=== PATIENT | female | born 1995 | race Caucasian/White ===

== ENCOUNTER 2022-06-24 00:58 | Day surgery (SDC) | payer OTHER, SELFPAY ==
[2022-06-20 14:16] VITALS: BMI 30.2
--- NOTE | 2022-06-20 14:23 | PC.NURSE ---
Report to the Outpatient Waiting Room, entrance under the green pavilion located off [facility], at time 0600 on date 06/24/22. Planned Procedure Time: 0730. Time changes happen often and if your time is changed the preop area will call you the afternoon before. - You and your visitor will be asked to self-screen and do not enter if you have any COVID symptoms. - Only one visitor is requested with a max of two and NO children visitors are allowed at this time. - The patient visitor may be requested to leave or wait in car when not with patient due to distancing restrictions. - A mask is optional within the hospital at this time. Patients may have clear liquids (water, carbonated beverages, clear teas, apple juice) until 3 hours prior to surgery with a maximum of 20 ounces. - No food from midnight until time of surgery Take the following medications with a SIP of water the morning of surgery: ZOLOFT DO NOT STOP ANY OF YOUR OTHER PRESCRIPTION MEDICATIONS PRIOR TO SURGERY EXCEPT THE FOLLOWING Medications to discontinue per physician: VITAMINS Date to take last dose: PT HAS ALREADY STOPPED TAKING Please no make-up, nail maltese, hairspray, perfume, deodorant, or body powder the day of surgery. No jewelry (including any body piercings) or valuables the day of surgery, leave them at home. Please take a shower or bath the night before, or the morning of, surgery with an antibacterial soap. Wear comfortable, loose fitting clothing. - Jewelry must be removed prior to entering the operating room. Rings and piercings that are not removed may be cut off. - The hospital will not accept responsibility for valuables. - Please leave all valuables, including medications, at home the day of surgery. If you are going home after surgery, a licensed commercial trailer truck driver must drive you home. - NO public transportation without another adult if you receive anesthesia. - We recommend that an adult stay with you for 24 hours following discharge. - We also recommend that you do not drive, make important decision, drink alcoholic beverages, or take any drugs that were not prescribed by your health care provider for at least 24 hours after your discharge time. Follow any additional instructions given to you from your surgeon. If you or anyone in your household have experienced Covid symptoms in the past week, please notify your surgeon or the nurse liaison at the phone number below for possible testing. Telephone instructions given to SWETHA HERNANDEZ and asked if any additional questions and then verbalized understanding. Patient advised to call surgeon office or pre surgery nurse liaison [phone] if any additional questions.
--- NOTE | 2022-06-23 15:18 | P.PNAN_ITS ---
Anes - Initial Pre Proc Eval Procedure: Operation Date: 06/24/22 07:30 Proposed Procedures p Bilateral Breast Reduction - Vikas yLman MD Date/Time: 06/23/22 15:18 Surgeon: Vikas Lyman MD Pre Op Diagnosis: macromastia Patient Data Age: 27 Gender: F Height: 1.55 m Weight: 72.6 kg Allergies Allergy/AdvReac Type Severity Reaction Status Date / Time No Known Allergies Allergy Verified 06/24/22 06:34 Home Medications Medication Instructions Recorded Confirmed Type multivitamin 1 tablet PO DAILY 06/20/22 06/24/22 History sertraline 50 mg tablet 50 mg PO DAILY 06/20/22 06/24/22 History Patient hx anesthesia problems: none Family hx anesthesia problems: none Results Review: All pre-operative results and documents have been reviewed as part of the pre-operative evaluation. [facility] Past Medical History Medical History (Updated 06/23/22 @ 15:18 by Wilian Hernandez MD) Anxiety Depression Social History Social History Smoking status: Never smoker Alcohol intake: never Substance use: current Substance use type: marijuana Living arrangements: with family Spiritual care concerns: No Anes - Eval Final PreProcedure Day of Procedure 06/23/22 15:18 Patient weight: obese Heart: regular rate and rhythm Lungs: clear to auscultation and normal air movement Airway: Mallampati scale class II Neurological: alert and oriented Last oral intake: >/= 8 hours ASA classification: II Emergent: no Anesthetic plan: proceed Anesthesia type and monitoring: general LMA Results Review: All pre-operative results and documents have been reviewed as part of the pre- operative evaluation. Informed Consent: The patient's anesthetic plan and its attendant risks and benefits were discussed with the patient/family/POA. Questions were solicited and answers provided to the satisfaction of the patient/family/POA.
[2022-06-24] VITALS (10 sets, daily range): BP systolic 118–157; BP diastolic 58–92; PULSE 67–107; RESP 12–20; TEMP 36.3–36.8; O2SAT 97–100
[2022-06-24] MEDS: LACTATED RINGERS 1,000 ML 30 ML IV CONT ×2 (06:45→09:58)
[2022-06-24 06:49] LABS: Urine Cotinine NEGATIVE
--- NOTE | 2022-06-24 07:24 | P.OP_ITS ---
Procedure Note - Detailed Date of Procedure 06/24/22 Pre-op Diagnosis macromastia Post-op Diagnosis Same Procedure Performed Bilateral reduction mammaplasty Surgeon Vikas Lyman MD Anesthesia General Findings Inverted T Superior medial pedicle Tissue removed: Right - 518 grams Left - 557 grams Description of Procedure She is here today for bilateral breast reduction. Previously and again today the risks, benefits, alternatives were discussed in extensive detail. I wanted her to be very realistic about the risks involved as well as expectations. We had a lengthy discussion about her Notch-Nipple and pedicle length as it affects her risks including but not limited to nipple loss (nipple areola ) and her options. We discussed aftercare and what to monitor for. She understands we can never guarantee final breast size and there will always be asymmetry. I was very upfront and honest about the risks of sensation change and even nipple loss (). Made sure answered all of her questions to her satisfaction today and consent was obtained. She was marked in the preoperative holding area with their verification. The patient was taken to the operating room placed supine on the operating table. Anesthesia was provided by anesthesiology. She was prepped and draped in a standard sterile fashion. A surgical time-out was taken. Stab incisions were made and I tumessed with a tumescent solution. I marked out the nipple-areolar complex at 42 mm. I then de-epithelialized the pedicle. The pedicle was well left well more than 2 cm in thickness. I then removed the inferior portion of the breast as well as the central keel to get shape based on preoperative planning. At this point copiously irrigated with saline solution and verified a strict hemostasis. I reapproximated the pillars using a 2-0 PDS. I tailor tacked the breast into place with rosy. She was placed in a sitting position. I verified the nipple-areolar complex position based on preoperative markings, intraoperative measurements, and observation which were in full agreement. This nipple-areolar complex was marked at 42 mm in size. I then placed supine and de-epithelialized this. Nipple-areolar complex was inset with 3-0 Monocryl. I closed IMF deep with 1 strattafix. I closed the vertical incision with 3-0 Monocryl in the IMF with 3- 0 stratafix. Then everything was closed using a running subcuticular 4-0 Monocryl followed by Steri-Strips. A dressing was placed followed by surgical bra. Patient was awoke and taken to PACU without difficulty. All instrument sponge counts were correct at the end of the case. Estimated Blood Loss 75 Drains No Packing No Pathology Yes (bilateral breast tissue) Complications No immediate complications Condition Stable Disposition PACU
--- NOTE | 2022-06-24 07:24 | WPDHPUPDATE1 ---
History and Physical Update Update Date/Time: 06/24/22 07:24 History and Physical has been reviewed, including an updated exam of the patient. There are NO changes in the patient's condition. Risks, benefits, and alternatives have been discussed and questions answered. Patient agrees to proceed with procedure.
[2022-06-24] MEDS: TRANEXAMIC ACID 1,000MG/ISO100 1,000 MG/100 ML BAG 200 MG IVPB (07:33)
[2022-06-24] MEDS: LACTATED RINGERS IRRIG 1,000 ML, LIDOCAINE HCL 1% LOCAL INJ 50 ML, EPINEPHrine HCL INJ ... INFILTRATE (07:33)
[2022-06-24] MEDS: ceFAZolin 2 GM/D5W 50 ML 2 GM/50 ML BAG IVPB (07:33)
--- NOTE | 2022-06-24 09:39 | SUR.OPER ---
breast tissue weilghts: right:518gr. , left:557gr.
[2022-06-24] MEDS: HALOPERIDOL LACTATE 5 MG/ML VIAL 1 MG IV PUSH (10:34)
[2022-06-24] MEDS: SCOPOLAMINE 1.5 MG PATCH TRANSDERM (10:34)
[2022-06-24] MEDS: oxyCODONE HCL (*CRX) 5 MG TAB IR PO (11:57)
== END 2022-06-24 12:28 | disposition home or self-care (01) ==
PROVIDERS: Visit Provider Surgery Plastic and Reconstructive Surgery
PROC: 0HBV0ZZ Excision of Bilateral Breast, Open Approach (ICD-10-PCS; CPT 19318; principal; 2022-06-24 07:30)
DX: N62 Hypertrophy of breast (principal); F41.9 Anxiety disorder, unspecified; F32.A Depression, unspecified; Z79.899 Other long term (current) drug therapy; F12.90 Cannabis use, unspecified, uncomplicated; E66.9 Obesity, unspecified; Z68.30 Body mass index [BMI] 30.0-30.9, adult
CPT/HCPCS: 19318; 80307; 88305; A9270; J0171; J0690; J1100; J1170; J1630; J2250; J2405; J2704; J2710; J3010; J7120